=== PATIENT | female | born 1950 | race Caucasian/White ===

== ENCOUNTER 2022-05-25 20:16 | Emergency (ER) | payer MEDICARE, OTHER ==
[2022-05-25] MEDS ORDERED: predniSONE 10 MG Tab PO ONE (20:17)
[2022-05-25] MEDS ORDERED: Famotidine 20 MG Tab PO ONE (20:17)
[2022-05-25] MEDS: Famotidine 20 MG Tab PO ONE (20:52)
[2022-05-25] MEDS: predniSONE 20 MG Tab PO ONE (20:52)
[2022-05-25] MEDS ORDERED: Famotidine 20 MG Tab ONE (21:31)
[2022-05-25] MEDS ORDERED: predniSONE 10 MG Tab ONE (21:31)
== END 2022-05-25 21:41 | disposition home or self-care (01) ==
LOC: DL.ED 20:16
DX: T78.40XA Allergy, unspecified, initial encounter (principal); I10 Essential (primary) hypertension; Z88.6 Allergy status to analgesic agent
CPT/HCPCS: 99283; 99284; A9270-GY; J7512